=== PATIENT | female | born 1985 | race Caucasian/White ===

== ENCOUNTER 2023-12-24 09:25 | Emergency (ER) | payer OTHER ==
[~2023-12-24] VITALS: Ht 172.7 cm; Wt 83.9 kg
[~2023-12-24 09:25] MED LIST: ALBU8.5H8 IH; METF-445 PO
[2023-12-24 09:27] VITALS: BP 140/86; PULSE 111; RESP 20
[2023-12-24] MEDS ORDERED: CIPR2.5D18 OP (10:13)
== END 2023-12-24 10:30 | disposition home or self-care (01) ==
LOC: EDH 09:25
DX: H10.9 Unspecified conjunctivitis (principal); E11.9 Type 2 diabetes mellitus without complications; J45.909 Unspecified asthma, uncomplicated

== ENCOUNTER 2024-10-24 08:52 | Emergency (ER) | payer OTHER ==
[~2024-10-24] VITALS: Ht 172.7 cm; Wt 81.6 kg
[~2024-10-24 08:52] MED LIST changes: +CEFD300C3 PO; +CIPR2.5D18 OP; +INSLAN SQ; +INSU100V3 SQ; -METF-445 PO
[2024-10-24] MEDS: DiphenhydrAMINE HCL 50 MG/ML VIAL IV ONE (09:37)
[2024-10-24] MEDS: 0.9%NACL 1000ML 1,000 ML IV ONE (09:37)
[2024-10-24] MEDS: FAMOTIDINE 20MG VIAL IV ONE (09:38)
--- NOTE | 2024-10-24 09:51 | ERN ---
ED Note History of Present Illness Stated Complaint: EYE REDNESS AND DRAINAGE Chief Complaint: Eye Problems Time Seen by MD: 09:03 Dictation: 39-year-old female presents to the ED for evaluation of bilateral eye redness and drainage onset yesterday. Patient reports bilateral eye swelling, but denies any other associated symptoms at this time. Patient's states he recently had a pink eye and believes that is what patient is having these symptoms. As per patient she had a similar episode 5 years ago and she did it as an allergic reaction. Patient is allergic to cats. Allergies: Coded Allergies: No Known Drug Allergies (Unverified Allergy, Unknown, 06/15/17) Home Meds Active Scripts Ciprofloxacin HCl (Ciprofloxacin 0.3% Opth Oint) 0.3 % Ooint, 1 APPL OP DAILY for 7 Days, #1 GM 0 Refills Prov:ANJEL RAO MD 10/24/24 Cephalexin Monohydrate (Keflex) 500 Mg Cap, 1 CAP PO BID for 5 Days, #10 CAP 0 Refills Prov:ANJEL RAO MD 10/24/24 Prednisone (Prednisone) 20 Mg Tablet, 1 TAB PO AD for 5 Days, #5 TAB 0 Refills TAKE 1 TAB BY MOUTH THREE TIMES PER DAY X3 DAYS, THEN TAKE 1 TAB BY MOUTH TWICE A DAY X2 DAYS, THEN TAKE 1 TAB BY MOUTH ONCE A DAY X1 DAY. Prov:ANJEL RAO MD 10/24/24 Cefdinir (Cefdinir) 300 Mg Capsule, 1 CAP PO BID for 5 Days, #10 CAP 0 Refills Prov:VAMSI MOTA MD 10/07/24 Insulin Regular, Human (Humulin R) 100 Unit/Ml Vial, 2 UNIT SQ ACHS for 30 Days, #30 VIAL 1 Refill Prov:VAMSI MOTA MD 10/07/24 Insulin Glargine,Hum.rec.anlog (Lantus) 100 Unit/Ml Inj, 20 UNITS SQ DAILY for 30 Days, #30 ML 1 Refill Prov:VAMSI MOTA MD 10/07/24 Ciprofloxacin HCl (Ciprofloxacin HCl) 0.3 % Drops, 2 DROP OP TID for 5 Days, #5 ML Prov:JD RENNER 12/24/23 Reported Medications Albuterol Sulfate (Proair Hfa) 8.5 Gm Hfa.aer.ad, 8.5 GM IH Q4HR 06/30/18 Past Medical History Past Medical History: Asthma, Diabetes-Type II Surgical History: : 3 Para: 1 Aborts: 2 Review of System Dictation Constitutional: Negative for fever,chills, and weight loss Eyes: Positive for bilateral eye redness, swelling, drainage Negative for injury ENT: Negative for injury,pain or swelling Cardiovascular: Negative for chest pain, palpitations, and edema Respiratory: Negative for shortness of breath, cough, and wheezing, Abdomen/GI: Negative for abdominal pain, nausea, vomiting, diarrhea, and constipation Back: Negative for injury and pain : Negative for injury, bleeding and discharge MS/Extremity: Negative for injury and deformity Skin: Negative for rash, and discoloration Neuro: Negative for headache, weakness, numbness, tingling, and seizure Psych: Negative for suicide ideation, homicidal ideation, and hallucinations Initial Vital Sign VS Vital Signs Date Time Temp Pulse Resp B/P (MAP) Pulse Ox O2 Delivery O2 Flow Rate FiO2 10/24/24 08:53 97.5 104 18 139/90 98 Room Air 10/24/24 08:56 0 21 Physical Exam Dictation General: awake, alert, NAD Head/Face: Normocephalic, atraumatic Eyes: Bilateral conjunctiva injection, upper and lower extremity swelling, erythema ENT: oral cavity clear, TMs clear, no signs of infection Neck: Trachea midline, supple, no nuchal rigidity Cardiovascular: RRR, normal S1/S2, No MRGs, no JVD Respiratory: CTAB, no respiratory distress, No rales or wheezes Abdomen: Soft, non-tender, non-distended, normal bowel sounds, no guarding or rebound. Skin: Warm, dry, normal turgor, no rash MS/Extremity: Pulses equal, no cyanosis, neurovascular intact, FROM Neuro: COAx4, GCS 15, strength 5/5, CN 2-12 intact, normal cerebellar exam, normal gait, Psych: Normal behavior, mood, and affect normal Results (Laboratory/Radiology) Laboratory/Radiology Laboratory Tests Test 10/24/24 09:31 Whole Blood Glucose 281 MG/DL (70-110) H Labs Reviewed?: Yes ED Course ED Course Orders Procedure Category Date Status Time Random Accucheck At CPOE 10/24/24 Transmitted Bedside 09:22 0.9%Nacl 1000ml (Ns PHA 10/24/24 Complete 1000ml) 09:30 Diphenhydramine Hcl PHA 10/24/24 Complete (Benadryl Inj) 09:30 Famotidine 20mg Vial PHA 10/24/24 Complete (Pepcid 20mg Vial) 09:30 Current Medications Medications (Trade) Dose Ordered Sig/Marilu Route PRN Reason Start Time Stop Time Status Last Admin Dose Admin Diphenhydramine HCl (BENAdryl INJ) 25 mg ONCE ONCE IV 10/24/24 09:30 10/24/24 09:32 DC 10/24/24 09:37 Famotidine (Pepcid 20mg Vial) 20 mg ONCE ONCE IV 10/24/24 09:30 10/24/24 09:32 DC 10/24/24 09:38 Sodium Chloride 1,000 ml @ 0 mls/hr ONCE ONCE IV 10/24/24 09:30 10/24/24 09:32 DC 10/24/24 09:37 Vital Signs Date Time Temp Pulse Resp B/P (MAP) Pulse Ox O2 Delivery O2 Flow Rate FiO2 10/24/24 10:40 98.1 98 20 134/82 98 Room Air* 0 21 10/24/24 09:47 98.1 97 18 137/87 98 Room Air* 0 10/24/24 08:56 98.8 98 20 139/90 98 Room Air* 0 21 10/24/24 08:53 97.5 104 18 139/90 98 Room Air Medical Decision Making MDM MDM: Differential diagnosis: Bacterial conjunctivitis, eye swelling, allergic reaction Previous outside records reviewed: Old ER visits. Need for hospitalization: Patient does not meet criteria for hospitalization. Need for emergency major/minor surgery: No Patient's prior external medical records from other ER visits were reviewed by me as indicated. Prior testing and results from previous visits were reviewed. Prior tests were taken into account with medical decision making and resource utilization, independent historian/historians were used to obtain complete medical history. I independently interpreted the test that were performed, results were reviewed by me and considered findings on radiology if ordered. Medical management and examination interpretation discussions were had by me with other qualified healthcare professionals as indicated for the patient's care. DX & DISP Disposition: Discharge Departure Impression: Primary Impression: Bacterial conjunctivitis of both eyes Condition: Stable Scripts Ciprofloxacin HCl (Ciprofloxacin 0.3% Opth Oint) 0.3 % Ooint 1 APPL OP DAILY for 7 Days, #1 GM 0 Refills Prov: ANJEL RAO MD 10/24/24 Cephalexin Monohydrate (Keflex) 500 Mg Cap 1 CAP PO BID for 5 Days, #10 CAP 0 Refills Prov: ANJEL RAO MD 10/24/24 Prednisone (Prednisone) 20 Mg Tablet 1 TAB PO AD for 5 Days, #5 TAB 0 Refills TAKE 1 TAB BY MOUTH THREE TIMES PER DAY X3 DAYS, THEN TAKE 1 TAB BY MOUTH TWICE A DAY X2 DAYS, THEN TAKE 1 TAB BY MOUTH ONCE A DAY X1 DAY. Prov: ANJEL RAO MD 10/24/24 Referrals: INEZ VALENZUELA (PCP) I have reviewed, & agreed with my scribe's, documentation. (Entered by Agustina Song, acting as a scribe for Dr. Rao) I personally scribed for ANJEL RAO MD ([email or web address]) on 10/24/24 at 09:51. Electronically submitted by Agustina Song ([email or web address]). ANJEL RAO MD Oct 24, 2024 09:51
[2024-10-24] MEDS ORDERED: CEPH500B PO (10:36)
[2024-10-24] MEDS ORDERED: PRED20TA3 PO (10:36)
[2024-10-24] MEDS ORDERED: CILOOO OP (10:39)
[2024-10-24 10:40] VITALS: BP 134/82; PULSE 98; RESP 20; TEMP 98.1; O2SAT 98
== END 2024-10-24 10:46 | disposition home or self-care (01) ==
LOC: EDH 08:52
DX: H10.89 Other conjunctivitis (principal); E11.9 Type 2 diabetes mellitus without complications; J45.909 Unspecified asthma, uncomplicated; Z79.4 Long term (current) use of insulin; Z98.890 Other specified postprocedural states
CPT/HCPCS: 99284; 96374; 96375; 82948; J1200; J3490; J7030